=== PATIENT | male | born 2000 | race Asian ===

== ENCOUNTER 2024-02-02 13:59 | Inpatient (IN) | payer OTHER ==
[~2024-02-02] VITALS: Ht 170.2 cm; Wt 80.7 kg
[2024-02-02 14:43] LABS: HEMATOCRIT 43.6 % (42.0-52.0); HEMOGLOBIN 15.4 g/dl (13.5-17.5); MEAN CORPUSCULAR HEMOGLOBIN 32.2 pg (27.0-33.0); MEAN CORPUSCULAR HGB CONC 35.3 g/dl (32.0-36.5); MEAN CORPUSCULAR VOLUME 91.2 fl (80.0-96.0); PLATELET COUNT, AUTOMATED 214 10^3/uL (150-450); RED BLOOD COUNT 4.78 10^6/uL (4.30-6.10); WHITE BLOOD COUNT 7.2 10^3/uL (4.0-10.0)
[2024-02-02 15:09] LABS: ETHYL ALCOHOL (ETHANOL) < 0.003 % (0.000-0.010)
[2024-02-02 15:11] LABS: ALBUMIN 4.4 G/DL (3.2-5.2); ALKALINE PHOSPHATASE 57 U/L (46-116); ALT/SGPT 21 U/L (7.0-40); AST/SGOT 10 U/L (<34); BILIRUBIN,DIRECT 0.2 MG/DL (<0.4); BILIRUBIN,TOTAL 0.6 MG/DL (0.3-1.2); BLOOD UREA NITROGEN 13 MG/DL (9-23); CALCIUM LEVEL 9.5 MG/DL (8.5-10.1); CARBON DIOXIDE LEVEL 29 MMOL/L (20-31); CHLORIDE LEVEL 105 MMOL/L (98-107); CREATININE FOR GFR 1.08 MG/DL (0.70-1.30); GLOMERULAR FILTRATION RATE > 60.0 (>60); GLUCOSE, FASTING 92 MG/DL (60-100); POTASSIUM SERUM 3.8 MMOL/L (3.5-5.1); SALICYLATE LEVEL < 3.0 MG/DL (<30); SODIUM LEVEL 140 MMOL/L (136-145); TOTAL PROTEIN 7.1 G/DL (5.7-8.2)
[2024-02-02 15:13] LABS: THYROID STIMULATING HORMONE 1.796 uIU/ML (0.55-4.78)
[2024-02-02 16:09] LABS: AMPHETAMINES LEVEL URINE NEGATIVE (NEGATIVE); BARBITURATES URINE NEGATIVE (NEGATIVE); BENZODIAZEPINES URINE NEGATIVE (NEGATIVE)
[2024-02-02 16:10] LABS: CANNABINOIDS URINE NEGATIVE (NEGATIVE); COCAINE METABOLITE URINE NEGATIVE (NEGATIVE); METHADONE URINE NEGATIVE (NEGATIVE); OPIATES URINE NEGATIVE (NEGATIVE); PHENCYCLIDINE URINE NEGATIVE (NEGATIVE)
[2024-02-02] MEDS ORDERED: MAALOX 30 ML SUSP *UDC PO PRN (17:50)
[2024-02-02] MEDS ORDERED: MOM 30ML SUSPENSION UDC PO PRN (17:50)
[2024-02-02] MEDS ORDERED: IBUPROFEN 400MG TAB PO PRN (17:50)
[2024-02-02] MEDS ORDERED: ACETAMINOPHEN TAB 650MG DOSE (2X325MG) PO PRN (17:50)
[2024-02-02] MEDS: traZODone 50 MG TAB PO PRN (21:11)
[2024-02-02 22:41] VITALS: BP 119/57; TEMP 97.3; O2SAT 98
[2024-02-03 05:56] VITALS: BP 122/63; TEMP 98.1; O2SAT 96
[2024-02-03] MEDS: diphenhydrAMINE 25MG CAP PO PRN (10:48)
[2024-02-03] MEDS: SERTRALINE HCL 25 MG TABLET PO SCH (12:55)
[2024-02-03] MEDS ORDERED: HOME MED LIST COMPLETE! XX SCH (13:35)
[2024-02-03 17:46] VITALS: BP 107/64; TEMP 98
[2024-02-03] MEDS: PRAZOSIN 1 MG CAP PO SCH (20:29)
[2024-02-04 06:21] VITALS: BP 124/64; TEMP 97.2; O2SAT 100
[2024-02-04 17:57] VITALS: BP 148/73; TEMP 98.2
[2024-02-05 06:32] VITALS: BP 129/60; TEMP 98.3
[2024-02-05] MEDS: SERTRALINE HCL 50 MG TAB PO SCH (08:41)
[2024-02-05 16:01] VITALS: BP 131/61; TEMP 98.6; O2SAT 98
[2024-02-05 21:21] VITALS: BP 140/82
[2024-02-06 06:08] VITALS: BP 129/61; TEMP 98; O2SAT 96
[2024-02-06] MEDS: buPROPion **XL** TABLET 150MG (WELLBUTRIN XL) PO SCH (09:29)
[2024-02-06 16:19] VITALS: BP 116/63; TEMP 97.8; O2SAT 100
[2024-02-07 06:14] VITALS: BP 125/62; TEMP 98; O2SAT 96
[2024-02-07 15:08] VITALS: BP 119/75; TEMP 98; O2SAT 100
[2024-02-07 20:15] VITALS: BP 120/73
[2024-02-08 06:22] VITALS: BP 113/57; TEMP 97.5; O2SAT 100
[2024-02-08 17:38] VITALS: BP 124/59; TEMP 98.1; O2SAT 98
[2024-02-09 06:00] VITALS: BP 118/57; TEMP 97.9; O2SAT 98
[2024-02-09 18:09] VITALS: BP 134/71; TEMP 98.4
[2024-02-10 06:33] VITALS: BP 153/67; TEMP 97.7; O2SAT 96
[2024-02-10 17:31] VITALS: BP 138/65; TEMP 97.7; O2SAT 98
[2024-02-11 06:38] VITALS: BP 103/50; TEMP 98.4; O2SAT 100
[2024-02-11 17:35] VITALS: BP 128/68; TEMP 98.7; O2SAT 96
[2024-02-11] MEDS: traZODone 25MG PER 1/2 TABLET PO PRN (20:50)
[2024-02-11 20:51] VITALS: BP 122/65
[2024-02-12 06:14] VITALS: BP 124/58; TEMP 97.4
[2024-02-12] MEDS ORDERED: SERT50TA29 PO (10:00)
[2024-02-12] MEDS ORDERED: PRAZ1CAP PO (10:00)
[2024-02-12] MEDS ORDERED: BUPR150T12 PO (10:00)
[2024-02-12] MEDS ORDERED: TRAZ-252 PO (10:00)
== END 2024-02-12 13:00 | disposition home or self-care (01) | DRG 885 ==
LOC: M ED 13:59 → M ED INP 17:46 → M PSY 20:55
PROVIDERS: ADMIT Student in an Organized Health Care Education/Training Program; ATTEND Student in an Organized Health Care Education/Training Program
DX: F33.2 Major depressive disorder, recurrent severe without psychotic features (principal); R45.851 Suicidal ideations; F43.10 Post-traumatic stress disorder, unspecified

== ENCOUNTER 2024-02-22 07:38 | Inpatient (IN) | payer OTHER ==
[~2024-02-22] VITALS: Ht 170.2 cm; Wt 83.4 kg
[~2024-02-22 07:38] MED LIST: BUPR150T12 PO; PRAZ1CAP PO; SERT50TA29 PO; TRAZ-252 PO
[2024-02-22] MEDS ORDERED: TRAZ-189 PO (07:46)
[2024-02-22] MEDS ORDERED: SERT-141 PO (08:15)
[2024-02-22] MEDS ORDERED: BUPR150T12 PO (08:15)
[2024-02-22] MEDS ORDERED: HOME MED LIST COMPLETE! XX SCH (08:25)
[2024-02-22 08:27] LABS: HEMOGLOBIN 16.6 g/dl (13.5-17.5); MEAN CORPUSCULAR HEMOGLOBIN 32.2 pg (27.0-33.0); MEAN CORPUSCULAR HGB CONC 34.6 g/dl (32.0-36.5); PLATELET COUNT, AUTOMATED 209 10^3/uL (150-450); RED BLOOD COUNT 5.16 10^6/uL (4.30-6.10); WHITE BLOOD COUNT 10.2 10^3/uL (4.0-10.0)
[2024-02-22 08:50] LABS: AMPHETAMINES LEVEL URINE NEGATIVE (NEGATIVE); BARBITURATES URINE NEGATIVE (NEGATIVE); BENZODIAZEPINES URINE NEGATIVE (NEGATIVE); CANNABINOIDS URINE NEGATIVE (NEGATIVE); COCAINE METABOLITE URINE NEGATIVE (NEGATIVE); METHADONE URINE NEGATIVE (NEGATIVE); OPIATES URINE NEGATIVE (NEGATIVE); PHENCYCLIDINE URINE NEGATIVE (NEGATIVE)
[2024-02-22 08:51] LABS: ETHYL ALCOHOL (ETHANOL) < 0.003 % (0.000-0.010)
[2024-02-22 08:52] LABS: SALICYLATE LEVEL < 3.0 MG/DL (<30)
[2024-02-22 08:53] LABS: ALBUMIN 4.6 G/DL (3.2-5.2); ALKALINE PHOSPHATASE 52 U/L (46-116); ALT/SGPT 24 U/L (7.0-40); AST/SGOT 10 U/L (<34); BILIRUBIN,DIRECT 0.2 MG/DL (<0.4); BILIRUBIN,TOTAL 0.6 MG/DL (0.3-1.2); BLOOD UREA NITROGEN 20 MG/DL (9-23); CALCIUM LEVEL 9.2 MG/DL (8.5-10.1); CARBON DIOXIDE LEVEL 28 MMOL/L (20-31); CHLORIDE LEVEL 103 MMOL/L (98-107); CREATININE FOR GFR 1.47 MG/DL (0.70-1.30); GLOMERULAR FILTRATION RATE > 60.0 (>60); GLUCOSE, FASTING 96 MG/DL (60-100); POTASSIUM SERUM 3.8 MMOL/L (3.5-5.1); SODIUM LEVEL 137 MMOL/L (136-145); TOTAL PROTEIN 7.4 G/DL (5.7-8.2)
[2024-02-22 08:55] LABS: THYROID STIMULATING HORMONE 4.769 uIU/ML (0.55-4.78)
[2024-02-22] MEDS ORDERED: MOM 30ML SUSPENSION UDC PO PRN (20:55)
[2024-02-22] MEDS ORDERED: IBUPROFEN 400MG TAB PO PRN (20:55)
[2024-02-22] MEDS ORDERED: MAALOX 30 ML SUSP *UDC PO PRN (20:55)
[2024-02-22] MEDS ORDERED: ACETAMINOPHEN TAB 650MG DOSE (2X325MG) PO PRN (20:55)
[2024-02-22 22:24] VITALS: BP 131/67; TEMP 98.4; O2SAT 96
[2024-02-22] MEDS: traZODone 50 MG TAB PO PRN (22:56)
[2024-02-23 06:23] VITALS: BP 106/62; TEMP 97.8; O2SAT 100
[2024-02-23] MEDS: VENLAFAXINE **XR** 37.5 MG CAPSULE PO SCH (09:05)
[2024-02-23 12:15] LABS: HEMATOCRIT 45.8 % (42.0-52.0); HEMOGLOBIN 15.7 g/dl (13.5-17.5); MEAN CORPUSCULAR HEMOGLOBIN 32.4 pg (27.0-33.0); MEAN CORPUSCULAR HGB CONC 34.3 g/dl (32.0-36.5); MEAN CORPUSCULAR VOLUME 94.6 fl (80.0-96.0); PLATELET COUNT, AUTOMATED 215 10^3/uL (150-450); RED BLOOD COUNT 4.84 10^6/uL (4.30-6.10); WHITE BLOOD COUNT 6.3 10^3/uL (4.0-10.0)
[2024-02-23 12:43] LABS: BLOOD UREA NITROGEN 20 MG/DL (9-23); CALCIUM LEVEL 9.4 MG/DL (8.5-10.1); CARBON DIOXIDE LEVEL 26 MMOL/L (20-31); CHLORIDE LEVEL 106 MMOL/L (98-107); CREATININE FOR GFR 1.32 MG/DL (0.70-1.30); GLOMERULAR FILTRATION RATE > 60.0 (>60); GLUCOSE, FASTING 98 MG/DL (60-100); POTASSIUM SERUM 4.5 MMOL/L (3.5-5.1); SODIUM LEVEL 138 MMOL/L (136-145)
[2024-02-23 17:18] VITALS: BP 133/73; TEMP 97.5
[2024-02-23] MEDS: ARIPiprazole 2 MG TAB PO SCH (21:16)
[2024-02-24 06:16] VITALS: BP 141/64; TEMP 97.7; O2SAT 95
[2024-02-24 07:10] LABS: CHOLESTEROL RISK RATIO 3.3 (<5); HDL CHOLESTEROL 44.2 MG/DL (>40); NON-HDL-C 101.8 MG/DL
[2024-02-24 18:11] VITALS: BP 119/63; TEMP 97.5
[2024-02-24] MEDS: traZODone 50 MG TAB PO PRN (20:39)
[2024-02-25 06:21] VITALS: BP 117/53; TEMP 98.6; O2SAT 99
[2024-02-25 14:27] VITALS: BP 148/66; TEMP 98.2; O2SAT 99
[2024-02-26 06:29] VITALS: BP 109/53; TEMP 98.3; O2SAT 99
[2024-02-26] MEDS: VENLAFAXINE **XR** 75MG CAPSULE PO SCH (08:18)
[2024-02-26 16:09] VITALS: BP 120/88; TEMP 97.8; O2SAT 96
[2024-02-26] MEDS: DOXEPIN 25 MG CAP PO SCH (20:32)
[2024-02-27 06:20] VITALS: BP 134/71; TEMP 97.5; O2SAT 96
[2024-02-27] MEDS: diphenhydrAMINE 25MG CAP PO PRN (11:57)
[2024-02-27 16:40] VITALS: BP 128/70; TEMP 98.1; O2SAT 98
[2024-02-28 06:18] VITALS: BP 124/58; TEMP 97.8
[2024-02-28 16:00] VITALS: BP 115/59; TEMP 98.4; O2SAT 99
[2024-02-29 06:28] VITALS: BP 103/57; TEMP 97.9; O2SAT 100
[2024-02-29 18:50] VITALS: BP 128/76; TEMP 97.5
== END 2024-03-01 00:01 | disposition home or self-care (01) | DRG 885 ==
LOC: M ED 07:38 → M ED INP 20:54 → M PSY 22:16
PROVIDERS: ADMIT Psychiatry & Neurology Psychiatry; ATTEND Student in an Organized Health Care Education/Training Program
DX: F33.2 Major depressive disorder, recurrent severe without psychotic features (principal); R45.851 Suicidal ideations; F43.10 Post-traumatic stress disorder, unspecified; F60.89 Other specific personality disorders; Z79.899 Other long term (current) drug therapy; Z11.52 Encounter for screening for COVID-19

== ENCOUNTER 2024-03-15 10:46 | Inpatient (IN) | payer OTHER ==
[~2024-03-15] VITALS: Ht 170.2 cm; Wt 87.6 kg
[~2024-03-15 10:46] MED LIST changes: +SERT-141 PO; +TRAZ-189 PO
[2024-03-15] MEDS ORDERED: VENL75TA2 PO (11:08)
[2024-03-15] MEDS ORDERED: DOXE25CA PO (11:08)
[2024-03-15] MEDS ORDERED: ARIP1TAB4 PO (11:08)
[2024-03-15] MEDS ORDERED: TRAZ1TAB14 PO (11:08)
[2024-03-15 11:30] LABS: HEMATOCRIT 47.1 % (42.0-52.0); HEMOGLOBIN 16.5 g/dl (13.5-17.5); MEAN CORPUSCULAR HEMOGLOBIN 32.4 pg (27.0-33.0); MEAN CORPUSCULAR VOLUME 92.5 fl (80.0-96.0); PLATELET COUNT, AUTOMATED 227 10^3/uL (150-450); RED BLOOD COUNT 5.09 10^6/uL (4.30-6.10); WHITE BLOOD COUNT 6.1 10^3/uL (4.0-10.0)
[2024-03-15 11:56] LABS: AMPHETAMINES LEVEL URINE NEGATIVE (NEGATIVE); BARBITURATES URINE NEGATIVE (NEGATIVE); BENZODIAZEPINES URINE NEGATIVE (NEGATIVE); COCAINE METABOLITE URINE NEGATIVE (NEGATIVE)
[2024-03-15 11:57] LABS: CANNABINOIDS URINE NEGATIVE (NEGATIVE); METHADONE URINE NEGATIVE (NEGATIVE); OPIATES URINE NEGATIVE (NEGATIVE); PHENCYCLIDINE URINE NEGATIVE (NEGATIVE)
[2024-03-15 11:59] LABS: ETHYL ALCOHOL (ETHANOL) < 0.003 % (0.000-0.010)
[2024-03-15 12:00] LABS: ALBUMIN 4.6 G/DL (3.2-5.2); ALKALINE PHOSPHATASE 53 U/L (46-116); ALT/SGPT 58 U/L (7.0-40); AST/SGOT 20 U/L (<34); BILIRUBIN,DIRECT 0.2 MG/DL (<0.4); BILIRUBIN,TOTAL 0.7 MG/DL (0.3-1.2); BLOOD UREA NITROGEN 14 MG/DL (9-23); CALCIUM LEVEL 9.3 MG/DL (8.5-10.1); CARBON DIOXIDE LEVEL 29 MMOL/L (20-31); CHLORIDE LEVEL 104 MMOL/L (98-107); CREATININE FOR GFR 1.16 MG/DL (0.70-1.30); GLOMERULAR FILTRATION RATE > 60.0 (>60); GLUCOSE, FASTING 94 MG/DL (60-100); POTASSIUM SERUM 4.1 MMOL/L (3.5-5.1); SALICYLATE LEVEL < 3.0 MG/DL (<30); SODIUM LEVEL 138 MMOL/L (136-145); TOTAL PROTEIN 7.4 G/DL (5.7-8.2)
[2024-03-15 12:03] LABS: THYROID STIMULATING HORMONE 1.983 uIU/ML (0.55-4.78)
[2024-03-15] MEDS ORDERED: MOM 30ML SUSPENSION UDC PO PRN (13:20)
[2024-03-15] MEDS ORDERED: MAALOX 30 ML SUSP *UDC PO PRN (13:20)
[2024-03-15] MEDS ORDERED: ACETAMINOPHEN TAB 650MG DOSE (2X325MG) PO PRN (13:20)
[2024-03-15] MEDS ORDERED: diphenhydrAMINE 25MG CAP PO PRN (13:20)
[2024-03-15] MEDS ORDERED: IBUPROFEN 400MG TAB PO PRN (13:20)
[2024-03-15] MEDS ORDERED: HOME MED LIST COMPLETE! XX SCH (14:05)
[2024-03-15 15:32] VITALS: BP 129/77; TEMP 97.7; O2SAT 99
[2024-03-15] MEDS: traZODone 50 MG TAB PO PRN (20:05)
[2024-03-16 06:04] VITALS: BP 105/58; TEMP 97.8; O2SAT 99
[2024-03-16] MEDS: ARIPiprazole 2 MG TAB PO SCH (13:46)
[2024-03-16] MEDS: buPROPion **XL** TABLET 150MG (WELLBUTRIN XL) PO SCH (13:46)
[2024-03-16 18:31] VITALS: BP 147/82; TEMP 98.9
[2024-03-16] MEDS: traZODone 50 MG TAB PO SCH (20:23)
[2024-03-16] MEDS: DOXEPIN 25 MG CAP PO SCH (20:23)
[2024-03-17 07:03] VITALS: BP 105/52; TEMP 98.1; O2SAT 97
[2024-03-17 18:10] VITALS: BP 122/68; TEMP 97.6; O2SAT 99
[2024-03-18 06:08] VITALS: BP 126/60; TEMP 97.1; O2SAT 97
[2024-03-18 15:15] VITALS: BP 138/70; TEMP 98.5; O2SAT 99
[2024-03-19 06:23] VITALS: BP 128/58; TEMP 97.9; O2SAT 97
[2024-03-19 15:49] VITALS: BP 134/59; TEMP 98.4; O2SAT 98
[2024-03-19 15:55] VITALS: BP 137/97; TEMP 98.4; O2SAT 97
[2024-03-20 06:20] VITALS: BP 124/60; TEMP 97.6; O2SAT 97
[2024-03-20 15:38] VITALS: BP 133/70; TEMP 97.8; O2SAT 100
[2024-03-20] MEDS ORDERED: BUPR150T12 PO (16:14)
[2024-03-20] MEDS ORDERED: DOXE25CA PO (16:14)
[2024-03-20] MEDS ORDERED: TRAZ1TAB14 PO (16:14)
[2024-03-20] MEDS ORDERED: ARIP1TAB4 PO (16:14)
[2024-03-21 06:25] VITALS: BP 123/60; TEMP 97.4; O2SAT 96
== END 2024-03-21 11:15 | disposition home or self-care (01) | DRG 885 ==
LOC: M ED 10:46 → EDBD 10:46 → M ED INP 13:19 → M PSY 15:29
PROVIDERS: ADMIT Psychiatry & Neurology Child & Adolescent Psychiatry; ATTEND Psychiatry & Neurology Child & Adolescent Psychiatry
DX: F33.2 Major depressive disorder, recurrent severe without psychotic features (principal); R45.851 Suicidal ideations; F43.10 Post-traumatic stress disorder, unspecified; Z91.51 Personal history of suicidal behavior; Z63.8 Other specified problems related to primary support group; Z79.899 Other long term (current) drug therapy